=== PATIENT | female | born 1945 | race Caucasian/White ===

== ENCOUNTER 2022-11-02 02:51 | Emergency (ER) | payer OTHER ==
[~2022-11-02] VITALS: Ht 160 cm; Wt 81.6 kg
[2022-11-02] MEDS ORDERED: LIDOCAINE HCL/PF 1% 30 ML VIAL TP ONE (03:30)
[2022-11-02] MEDS ORDERED: TDAP [DIPH/PERTUSSIS/TET] 0.5 ML VIAL IM ONE ×2 (03:30→03:38)
[2022-11-02] MEDS ORDERED: LIDOCAINE 2% 20 ML MDV ONE (03:31)
--- NOTE | 2022-11-02 03:46 | NUR ---
AT BEDSIDE FOR LAC REPAIR
[2022-11-02] MEDS ORDERED: AMOX-430 PO (04:29)
[2022-11-02 04:35] VITALS: BP 129/88
--- NOTE | 2022-11-02 04:37 | NUR ---
Patient discharged to home in stable condition. Written and verbal after care instructions given. Patient verbalizes understanding of instruction.
== END 2022-11-02 04:37 | disposition home or self-care (01) ==
LOC: ER 03:10
DX: S61.411A Laceration without foreign body of right hand, initial encounter (principal); I10 Essential (primary) hypertension; Z79.899 Other long term (current) drug therapy; Z85.828 Personal history of other malignant neoplasm of skin; W01.0XXA Fall on same level from slipping, tripping and stumbling without subsequent striking against object, initial encounter; Y93.89 Activity, other specified; Y92.89 Other specified places as the place of occurrence of the external cause; Y99.8 Other external cause status
CPT/HCPCS: 99283; 12002; 90471; 90715; J3490 ×2

== ENCOUNTER 2022-11-14 01:46 | Emergency (ER) | payer OTHER ==
[~2022-11-14] VITALS: Ht 160 cm; Wt 79.4 kg
[~2022-11-14 01:46] MED LIST: AMOX-430 PO
[2022-11-14 02:00] VITALS: BP 121/67
--- NOTE | 2022-11-14 02:00 | NUR ---
MAXIMINO FROM HOME REQUESTING SUTURE REMOVAL FROM 12 DAYS AGO. 14 SUTURES NOTED. PT A/OX4. TOLERATING R/A WELL WITH NO RESP DISTRESS.
--- NOTE | 2022-11-14 02:18 | NUR ---
14 SUTURE REMOVAL DONE TO R HAND
--- NOTE | 2022-11-14 02:20 | NUR ---
Patient discharged to home in stable condition. Written and verbal after care instructions given. Patient verbalizes understanding of instruction.
== END 2022-11-14 02:20 | disposition home or self-care (01) ==
LOC: ER 01:48
DX: S61.411D Laceration without foreign body of right hand, subsequent encounter (principal); I10 Essential (primary) hypertension; Z79.899 Other long term (current) drug therapy; X58.XXXD Exposure to other specified factors, subsequent encounter

== ENCOUNTER 2023-03-27 02:39 | Emergency (ER) | payer OTHER ==
[~2023-03-27] VITALS: Ht 165.1 cm; Wt 79.4 kg
[2023-03-27 02:45] VITALS: BP 143/74; TEMP 98.1; O2SAT 98
== END 2023-03-27 03:32 | disposition home or self-care (01) ==
LOC: ER 02:45
DX: H11.31 Conjunctival hemorrhage, right eye (principal); I10 Essential (primary) hypertension; Z79.899 Other long term (current) drug therapy